=== PATIENT | female | born 1965 | race Caucasian/White ===

== ENCOUNTER 2023-10-29 14:16 | Emergency (ER) | payer MEDICARE, BC ==
[~2023-10-29] VITALS: Ht 170.2 cm; Wt 113.9 kg
[2023-10-29 15:40] LABS: URINE HCG NEGATIVE (NEG)
[2023-10-29 15:42] LABS: BILIRUBIN,URINE NEGATIVE (Neg); CLARITY,URINE SLIGHTLY CLOUDY (Clear); COLOR,URINE YELLOW (Yellow); GLUCOSE, URINE NEGATIVE (Neg); KETONES,URINE NEGATIVE (Neg); LEUKOCYTE ESTERASE ,URINE SMALL (Neg); NITRITES, URINE NEGATIVE (Neg); OCCULT BLOOD,URINE NEGATIVE (Neg); PROTEIN,URINE NEGATIVE (Neg); UROBILINOGEN,URINE 0.2 E.U/dL (0.2-1.0)
[2023-10-29 15:49] LABS: UA COLLECTION TYPE CLN CATCH MIDSTREAM
[2023-10-29 15:53] LABS: BASOPHILS # (AUTO) 0.1 X10'3 (0-0.2); BASOPHILS % (AUTO) 0.7 % (0-1); EOSINOPHILS # (AUTO) 0.1 X10'3 (0-0.9); EOSINOPHILS % (AUTO) 0.6 % (0-6); HEMOGLOBIN 15.4 g/dl (12.0-16.0); LYMPHOCYTES # (AUTO) 2.4 X10'3 (1.1-4.8); LYMPHOCYTES % (AUTO) 25.6 % (21-51); MEAN CORPUSCULAR HEMOGLOBIN 27.2 PG (27.0-31.0); MEAN CORPUSCULAR HGB CONC 32.8 g/dL (33.0-36.5); MEAN CORPUSCULAR VOLUME 82.8 FL (78-98); MONOCYTES # (AUTO) 0.5 X10'3 (0-0.9); NEUTROPHILS # (AUTO) 6.3 X10'3 (1.8-7.7); NEUTROPHILS % (AUTO) 68.1 % (42-75); PLATELET COUNT 301 X10'3 (140-440); RED BLOOD COUNT 5.67 X10'6 (4.20-5.60); RED CELL DISTRIBUTION WIDTH 15.6 % (11.5-14.5); WHITE BLOOD COUNT 9.2 X10'3 (4.5-11.0)
[2023-10-29 16:06] LABS: ALANINE AMINOTRANSFERASE 31 U/L (12-78); ALBUMIN 3.9 G/DL (3.4-5.0); ALKALINE PHOSPHATASE 109 IU/L (46-116); ANION GAP 7 (8-16); ASPARTATE AMINO TRANSFERASE 18 U/L (10-37); BILIRUBIN,TOTAL 0.4 MG/DL (0.1-1.0); BLOOD UREA NITROGEN 13 MG/DL (7-18); BUN/CREATININE RATIO 17.8 (10.0-20.0); CALCIUM 9.3 MG/DL (8.5-10.1); CHLORIDE 101 MMOL/L (99-107); CREATININE 0.73 MG/DL (0.40-0.90); GLUCOSE 105 MG/DL (70-104); POTASSIUM 3.9 MMOL/L (3.5-5.1); SODIUM 138 MMOL/L (135-145); TOTAL CARBON DIOXIDE 30.5 MMOL/L (24-32); TOTAL PROTEIN 7.8 G/DL (6.4-8.2); eCRCL 82 ML/MIN; eGFR 82 ML/MIN
[2023-10-29 16:15] LABS: RBC,URINE 0-2 /HPF (0-2)
[2023-10-29 16:16] LABS: BACTERIA,URINE FEW /HPF (Neg)
[2023-10-29 16:16] LABS: ETHANOL < 10 MG/DL (<10); THYROID STIMULATING HORMONE 5.28 ulU/ml (0.34-4.50)
[2023-10-29 16:18] LABS: SQUAMOUS EPITHELIAL CELL,UR MODERATE /LPF (FEW)
[2023-10-29 16:22] LABS: TRANSITIONAL EPI CELLS,URINE FEW /HPF; WBC CLUMPS,URINE FEW /HPF (NEGATIVE)
[2023-10-29 16:50] LABS: URINE AMPHETAMINE SCREEN POSITIVE (Neg); URINE BARBITUATE SCREEN NEGATIVE (Neg); URINE BENZODIAZEPINES SCREEN POSITIVE (Neg); URINE CANNABINOID SCREEN NEGATIVE (Neg); URINE COCAINE SCREEN NEGATIVE (Neg); URINE METHADONE SCREEN NEGATIVE (Neg); URINE OPIATE SCREEN NEGATIVE (Neg); URINE PHENCYCLIDINE SCREEN NEGATIVE (Neg)
[2023-10-29] MEDS ORDERED: TRAZ-256 PO (17:03)
[2023-10-29] MEDS ORDERED: ALPR-624 PO (17:03)
[2023-10-29] MEDS ORDERED: LEVO112T52 PO (17:03)
[2023-10-29] MEDS ORDERED: ESZO3TAB66 PO (17:03)
[2023-10-29] MEDS ORDERED: acetaminophen 325mg tablet PO ONE (17:20)
[2023-10-29] MEDS ORDERED: ALPRAZolam 0.5mg tablet PO ONE (17:20)
[2023-10-29] MEDS ORDERED: traZODone 50mg tablet PO PRN (20:40)
[2023-10-29] MEDS ORDERED: zolpidem 5mg tablet PO PRN (20:50)
[2023-10-29] MEDS: ALPRAZolam 0.5mg tablet PO PRN (21:43)
[2023-10-30] MEDS ORDERED: acetaminophen 325mg tablet PO ONE (02:45)
[2023-10-30] MEDS ORDERED: levoTHYROXINE 112mcg tablet PO SCH (08:00)
[2023-10-30 08:21] VITALS: BP 122/62; PULSE 68; TEMP 97.8; O2SAT 95
[2023-10-30] MEDS: ALPRAZolam 0.5mg tablet PO PRN (08:27)
[2023-10-30] MEDS ORDERED: acetaminophen 325mg tablet PO PRN (08:50)
[2023-10-30 10:41] VITALS: RESP 16
== END 2023-10-30 12:55 | disposition home or self-care (01) ==
LOC: ER 14:16
DX: R45.851 Suicidal ideations (principal); Z20.822 Contact with and (suspected) exposure to COVID-19; F31.9 Bipolar disorder, unspecified; Z79.899 Other long term (current) drug therapy
CPT/HCPCS: 36415; 80053; 80305; 80320; 81001; 81025; 84443; 85025; 87811; 99285